=== PATIENT | female | born 1995 | race Caucasian/White ===

== ENCOUNTER → 2016-11-17 | Day surgery (SDC) | payer OTHER ==
[2016-11-17 12:13] LABS: HGB 13.2 g/dl (12.5-16.0); MCH 26.5 pg (25.0-31.0); MCV 80.2 fL (78.0-100.0); MPV 10.5 fL (6.0-9.5); RBC 4.99 M/uL (4.20-5.40); RDW 13.7 % (11.5-14.0)
[2016-11-17 12:36] LABS: ALBUMIN 4.5 g/dL (3.5-5.0); BILIRUBIN - TOTAL 0.3 mg/dL (0.1-1.0); CREATININE 0.7 mg/dL (0.5-1.0); GLOBULIN (CALCULATION) 3.7 g/dL (2.2-4.2); POTASSIUM 4.6 mmol/L (3.5-5.1); TOTAL PROTEIN 8.2 g/dL (6.4-8.3)
[2016-11-17 12:40] LABS: INR 0.98 (0.9-1.2); PROTHROMBIN TIME 12.6 SECONDS (11.7-14.0); PTT 34.8 SECONDS (23.2-31.4)
[2016-11-17 12:52] LABS: TSH (THYROID STIM HORMONE) 2.88 uIU/mL (0.270-4.200); VITAMIN D (25-OH) 26.75 ng/mL (20.0-)
== END | disposition home or self-care (01) ==
LOC: FAS 10:30
PROVIDERS: Surgery
DX: K29.50 Unspecified chronic gastritis without bleeding (principal); J45.909 Unspecified asthma, uncomplicated; K21.9 Gastro-esophageal reflux disease without esophagitis; F41.9 Anxiety disorder, unspecified; F32.9 Major depressive disorder, single episode, unspecified; E66.01 Morbid (severe) obesity due to excess calories; Z88.8 Allergy status to other drugs, medicaments and biological substances; Z79.899 Other long term (current) drug therapy; Z98.890 Other specified postprocedural states; Z68.41 Body mass index [BMI] 40.0-44.9, adult
CPT/HCPCS: 36415; 80053; 80061; 82306; 82607; 82728; 82746; 83036; 83540; 83550; 84425; 84443; 84703; 85610; 85730; 88305; J2704